=== PATIENT | female | born 1955 | race Caucasian/White ===

== ENCOUNTER 2017-01-08 18:22 | Emergency (ER) | payer MEDICARE, OTHER ==
[~2017-01-08] VITALS: Ht 175.3 cm; Wt 113.9 kg
[~2017-01-08 18:22] MED LIST: ASPIR 8181 MG PO; ASPIRIN 325MG325 MG PO; ATENOLOL25 M1 PO; ATENOLOL25 MG PO; ATENOLOL50 M1 PO; BETAPACE120 MG PO; CO Q-1050 MG PO; CO-Q10 300 MG-31 SGL PO; DEPAKOTE ER250 MG PO; DEPAKOTE ER500 MG PO; DILTIAZEM ER 1120 MG PO; DIVALPROEX 250250 MG PO; FLEXERIL10 MG PO; HYDROCHLOROTH12.5 M1 PO; LATANOPROST 2.2.5 ML OP; LEVOTHYROXINE0.05 M3 PO; LISINOPRIL 20MG20 MG PO; LOSARTAN POTAS100 MG PO; LOSARTAN POTASS50 MG PO; MECLIZINE HYDRO25 MG PO; TRAMADOL 50MG T1 PAK PO; TRAMADOL 50MG T50 M1 PO; XARELTO20 MG PO; Zofran4 MG PO
[2017-01-08] MEDS ORDERED: POTASSIUM CHLO10 ME3 PO (18:31)
[2017-01-08] MEDS ORDERED: COQ1050 MG PO (18:32)
[2017-01-08] MEDS ORDERED: HYDROCHLOROTH12.5 M1 PO (18:32)
[2017-01-08 18:55] LABS: LYMPH # 4.6 K/mm3 (0.7-4.5); LYMPH % 37.5 % (10-50.0)
--- OUTSIDE RECORDS SUMMARY | 2017-01-08 18:57 | External Medical Summary Rpt ---
Author Author AME Address Unknown Phone [email or web address] Purpose Continuity of Care Document - through 2016
--- OUTSIDE RECORDS SUMMARY | 2017-01-08 18:57 | External Medical Summary Rpt ---
Author Author AME Address Unknown Phone [email or web address] Purpose Continuity of Care Document - through 2016
--- OUTSIDE RECORDS SUMMARY | 2017-01-08 18:57 | External Medical Summary Rpt ---
Author Author [employer] Organization [employer] Address Unknown Phone Unavailable Purpose Continuity of Care Document - through 2016
--- OUTSIDE RECORDS SUMMARY | 2017-01-08 18:57 | External Medical Summary Rpt ---
Demographics Preferred Language Greenlandic Marital Status Unknown Christian Affiliation Unknown Race Unknown Ethnic Group Unknown Author Author AME Address Unknown Phone Immunization No patient found.
--- OUTSIDE RECORDS SUMMARY | 2017-01-08 18:57 | External Medical Summary Rpt ---
Demographics Preferred Language Ukrainian Marital Status Unknown Amish Affiliation Unknown Race Unknown Ethnic Group Unknown Author Author AME Address Unknown Phone Immunization No patient found.
[2017-01-08 19:23] LABS: BUN 21 mg/dL (7-18); GFR (ESTIMATED) 56 ML/MIN (59-)
--- NOTE | 2017-01-08 19:29 | Emergency Room Report ---
History of Present Illness Time Seen by 185 Presenting Problem in Triage Pt arrived:Walked Presenting Problem:PT REPORTS CHEST HEAVINESS AND PAIN IN BETWEEN SHOULDER BLADES THAT HAS BEEN INTERMITTENT SINCE LASTNIGHT. 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 N Clinical Suspician of Infection? N Mental Status: 1 - Regular (Normal Baseline) Sepsis Risk:Possible Sepsis Risk Have you (or family members/close friends) recently traveled outside the [place]? N If Yes, where/when: Have you had exposure to infectious disease within the past month? N TB? Other? Specify: Source patient, RN notes reviewed, old records Exam Limitations no limitations Cardiac Chest Pain Chest pain indicative of cardiac No Timing/Duration this evening Severity moderate ALLERGIES Coded Allergies: codeine (Mild, 05/24/16) epinephrine (Mild, HEART RACING 01/08/17) iodine (Mild, 05/24/16) lidocaine (Mild, 05/24/16) spironolactone (01/08/17) Home Medications Active Scripts LEVOTHYROXINE SOD (Levothyroxine 0.05MG) 0.05 MG PO DAILY #30 TAB Ref 6 Prov: 08/26/13 Reported Medications Aspirin (Aspirin EC 81MG Tab) 81 MG PO DAILY Losartan Potassium (Losartan 50MG) 25 MG PO DAILY 30 Days Atenolol 25 MG PO #135 POTASSIUM CHL (Potassium Chloride) 5 MEQ PO DAILY Hydrochlorothiazide (Hydrochlorothiazide 12.5MG) 12.5 MG PO DAILY Ubidecarenone (Coq10) 50 MG PO DAILY (CATIE GUTIERREZ, [facility]) History Medical History General CAD? No Angina: No CO: No Hypertension? Yes Hyperlipidemia? Yes CHF? No DVT? No PE? No COPD? No Asthma? Yes Anemia? No GERD? No Gastric ulcers? No GI Bleed? No Hernia? No Thyroid Problems? Yes Hypothyroidism? Yes CVA? No Seizures? No Diabetes? No Renal Insuffiency? No End Stage Renal Disease? No UTI? Yes Stones? No BPH? No GB Disease: No Nephritic Syndrome? No Asplenia? No Hepatitis? No Sickle Cell Disease? No Arthritis? No Migraines? No Cataracts? No Glaucoma? Yes MRSA? No HIV? No TB? No Anxiety? No Depression? Yes Cancer? No Site: CERVICAL DYSPLAGIA More? Yes Additional hx: OSTEOPOROSIS, FIBROMYALGIA, BIPOLAR,AFIB Immunization Hx DT/Tetanus > 10 Years Ago Flu Refused Pneumonia Never Had Surgical Hx Previous Surgery?Y EDLA Tubal Ligation Tonsils BIOPSY OF TUMOR LT.BREAST CRYO ON CERVIX D & C CARDIAC CATH LIVER BIOPSY Family History Family Hx Family Hx Insignificant No Diabetes Yes CAD Yes Hypertension Yes Hyperlipidemia Yes Cancer Yes TB No Social History Smoking Hx Smoker: Never Smoker Tobacco: No Alcohol Alcohol: No Drugs denies Additionial History Additional History Pt has a cardilogist in [facility]. She has paroxysmal A-fib. Admitted here in Mar 2016 for a -fib and was placed on Xarelto and sotolal and then follow up with milling machine tender discontinued both.Today in normal sinus rythym (GRAYSON HADDAD MD) Review of Systems All Other Systems Reviewed and Negative Constitutional no symptoms reported Eyes no symptoms reported ENT no symptoms reported. Respiratory no symptoms reported Cardiovascular denies no symptoms reported, chest pain, edema, palpitations Genitourinary no symptoms reported. Musculoskeletal no symptoms reported Skin no symptoms reported Psychiatric/Neurological no symptoms reported (CATIE GUTIERREZ, GRAYSON) Physical Exam Vital Signs Vital Signs Date Time Temp Pulse Resp B/P Pulse O2 O2 Flow FiO2 Ox Delivery Rate 01/08 2042 63 20 140/74 97 01/08 2009 63 20 116/62 97 01/08 1940 70 20 121/77 97 01/08 1910 98 20 143/79 97 01/08 1823 98.1 98 20 180/111 97 General Appearance normal appearance, WD/WN Eye Exam - bilateral eye normal exam, bilateral eye PERRL Respiratory Status No: respiratory distress. Lung Sounds bilateral: normal breath sounds, lungs clear. Cardiovascular normal exam, regular rate/rhythm, no gallop, no JVD, no murmur Peripheral Pulses Pulses normal Yes Extremities pedal edema (plus 1) Nurse present during exam? No Neurologic alert, automotive design layout drafter II-XII nml as tested Mental status normal mood/affect Skin normal color, warm/dry (GRAYSON HADDAD MD) Medical Decision Making LABS/Meds/Orders Pt receiving controlled substance in ED? No Results/Orders Laboratory Tests 01/08/17 2015: Creatine Kinase 253 H, CK-MB (CK-2) Rel Index 1.3, CK and CKMB Interp 3.4, Troponin I < 0.02 01/08/173: Sodium 138, Potassium 3.3 L, Chloride 101, Carbon Dioxide 26, BUN 21 H, Creatinine 1.0, Estimated Creat Clear 103, Estimated GFR (MDRD) 56 L, Glucose 114 H, Calcium 9.5, Total Bilirubin 0.4, AST 30, ALT 35, Alkaline Phosphatase 111, Creatine Kinase 272 H, CK-MB (CK-2) Rel Index 1.5, CK and CKMB Interp 4.1 H, Troponin I < 0.02, Total Protein 7.8, Albumin 4.0, Globulin 3.8 H, Albumin/ Globulin Ratio 1.1, WBC 12.2 H, RBC 5.00, Hgb 14.0, Hct 41.5, MCV 83.1, RDW 13.1, Plt Count 302, MPV 6.8 L, Gran % 54.0, Gran # 6.6, Lymphocytes % 37.5, Monocytes % 6.3, Eosinophils % 1.7, Basophils % 0.5, Lymphocytes # 4.6 H, Monocytes # 0.8, Eosinophils # 0.2, Basophils # 0.1, PUBS MCHC 33.7, MCH 28.0 Current Medication Orders Sig/Francois Start time Last Medication Dose Route Stop Time Status Admin Aspirin 243 MG ONCE ONE 01/08 1830 DC 01/08 PO 01/08 183 183 Sodium Chloride 10 ML PRN PRN 01/08 183 AC IV 01/09 182 Orders Procedure Date/time Status CARDIAC ENZYMES 01/09 2008 Complete ELECTROCARDIOGRAM REQUEST 01/08 1826 Active IV SALINE LOCK 01/08 1826 Active FIELD ORGANIZER 01/08 1826 Active CBC WITH AUTO DIFF 01/08 1826 Complete CARDIAC ENZYMES 01/08 1826 Complete CHEM 12 PROFILE 01/08 1826 Complete 12 LEAD EKG-GUY (INITIAL) 01/08 UNK Active CM/EKG CM/lpn instructor Rhythm Normal Sinus Rhythm, 1st Degree Heart Block, RBBB (GRAYSON HADDAD MD) Departure Departure Time of Disposition 2009 Clinical Impression Primary Impression: Chest pain Qualifiers: Chest pain type: precordial pain Qualified Code: R07.2 - Precordial pain Condition STABLE Referrals Austin Ventura MD (Family) ED Critical Care Critical Care No (GRAYSON HADDAD MD) Departure Disposition DC Home or Self Care(routine) Patient Instructions DI for Chest Pain Additional Instructions call pcp for follow up in am Discharge Counseling Counseled pt/family regarding diagnosis, test results, follow up needs (Italo Bautista MD) at 2010 at 2050
--- NOTE | 2017-01-08 19:29 | Emergency Room Report ---
History of Present Illness Time Seen by 185 Presenting Problem in Triage Pt arrived:Walked Presenting Problem:PT REPORTS CHEST HEAVINESS AND PAIN IN BETWEEN SHOULDER BLADES THAT HAS BEEN INTERMITTENT SINCE LASTNIGHT. 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 N Clinical Suspician of Infection? N Mental Status: 1 - Regular (Normal Baseline) Sepsis Risk:Possible Sepsis Risk Have you (or family members/close friends) recently traveled outside the [place]? N If Yes, where/when: Have you had exposure to infectious disease within the past month? N TB? Other? Specify: Source patient, RN notes reviewed, old records Exam Limitations no limitations Cardiac Chest Pain Chest pain indicative of cardiac No Timing/Duration this evening Severity moderate ALLERGIES Coded Allergies: codeine (Mild, 05/24/16) epinephrine (Mild, HEART RACING 01/08/17) iodine (Mild, 05/24/16) lidocaine (Mild, 05/24/16) spironolactone (01/08/17) Home Medications Active Scripts LEVOTHYROXINE SOD (Levothyroxine 0.05MG) 0.05 MG PO DAILY #30 TAB Ref 6 Prov: 08/26/13 Reported Medications Aspirin (Aspirin EC 81MG Tab) 81 MG PO DAILY Losartan Potassium (Losartan 50MG) 25 MG PO DAILY 30 Days Atenolol 25 MG PO #135 POTASSIUM CHL (Potassium Chloride) 5 MEQ PO DAILY Hydrochlorothiazide (Hydrochlorothiazide 12.5MG) 12.5 MG PO DAILY Ubidecarenone (Coq10) 50 MG PO DAILY (CATIE GUTIERREZ, [facility]) History Medical History General CAD? No Angina: No DE: No Hypertension? Yes Hyperlipidemia? Yes CHF? No DVT? No PE? No COPD? No Asthma? Yes Anemia? No GERD? No Gastric ulcers? No GI Bleed? No Hernia? No Thyroid Problems? Yes Hypothyroidism? Yes CVA? No Seizures? No Diabetes? No Renal Insuffiency? No End Stage Renal Disease? No UTI? Yes Stones? No BPH? No GB Disease: No Nephritic Syndrome? No Asplenia? No Hepatitis? No Sickle Cell Disease? No Arthritis? No Migraines? No Cataracts? No Glaucoma? Yes MRSA? No HIV? No TB? No Anxiety? No Depression? Yes Cancer? No Site: CERVICAL DYSPLAGIA More? Yes Additional hx: OSTEOPOROSIS, FIBROMYALGIA, BIPOLAR,AFIB Immunization Hx DT/Tetanus > 10 Years Ago Flu Refused Pneumonia Never Had Surgical Hx Previous Surgery?Y ELDA Tubal Ligation Tonsils BIOPSY OF TUMOR LT.BREAST CRYO ON CERVIX D & C CARDIAC CATH LIVER BIOPSY Family History Family Hx Family Hx Insignificant No Diabetes Yes CAD Yes Hypertension Yes Hyperlipidemia Yes Cancer Yes TB No Social History Smoking Hx Smoker: Never Smoker Tobacco: No Alcohol Alcohol: No Drugs denies Additionial History Additional History Pt has a cardilogist in [facility]. She has paroxysmal A-fib. Admitted here in Mar 2016 for a -fib and was placed on Xarelto and sotolal and then follow up with lock master discontinued both.Today in normal sinus rythym (GRAYSON HADDAD MD) Review of Systems All Other Systems Reviewed and Negative Constitutional no symptoms reported Eyes no symptoms reported ENT no symptoms reported. Respiratory no symptoms reported Cardiovascular denies no symptoms reported, chest pain, edema, palpitations Genitourinary no symptoms reported. Musculoskeletal no symptoms reported Skin no symptoms reported Psychiatric/Neurological no symptoms reported (CATIE GUTIERREZ, GRAYSON) Physical Exam Vital Signs Vital Signs Date Time Temp Pulse Resp B/P Pulse O2 O2 Flow FiO2 Ox Delivery Rate 01/08 2042 63 20 140/74 97 01/08 2009 63 20 116/62 97 01/08 1940 70 20 121/77 97 01/08 1910 98 20 143/79 97 01/08 1823 98.1 98 20 180/111 97 General Appearance normal appearance, WD/WN Eye Exam - bilateral eye normal exam, bilateral eye PERRL Respiratory Status No: respiratory distress. Lung Sounds bilateral: normal breath sounds, lungs clear. Cardiovascular normal exam, regular rate/rhythm, no gallop, no JVD, no murmur Peripheral Pulses Pulses normal Yes Extremities pedal edema (plus 1) Nurse present during exam? No Neurologic alert, tailor's aide II-XII nml as tested Mental status normal mood/affect Skin normal color, warm/dry (GRAYSON HADDAD MD) Medical Decision Making LABS/Meds/Orders Pt receiving controlled substance in ED? No Results/Orders Laboratory Tests 01/08/17 2015: Creatine Kinase 253 H, CK-MB (CK-2) Rel Index 1.3, CK and CKMB Interp 3.4, Troponin I < 0.02 01/08/173: Sodium 138, Potassium 3.3 L, Chloride 101, Carbon Dioxide 26, BUN 21 H, Creatinine 1.0, Estimated Creat Clear 103, Estimated GFR (MDRD) 56 L, Glucose 114 H, Calcium 9.5, Total Bilirubin 0.4, AST 30, ALT 35, Alkaline Phosphatase 111, Creatine Kinase 272 H, CK-MB (CK-2) Rel Index 1.5, CK and CKMB Interp 4.1 H, Troponin I < 0.02, Total Protein 7.8, Albumin 4.0, Globulin 3.8 H, Albumin/ Globulin Ratio 1.1, WBC 12.2 H, RBC 5.00, Hgb 14.0, Hct 41.5, MCV 83.1, RDW 13.1, Plt Count 302, MPV 6.8 L, Gran % 54.0, Gran # 6.6, Lymphocytes % 37.5, Monocytes % 6.3, Eosinophils % 1.7, Basophils % 0.5, Lymphocytes # 4.6 H, Monocytes # 0.8, Eosinophils # 0.2, Basophils # 0.1, PUBS MCHC 33.7, MCH 28.0 Current Medication Orders Sig/Francois Start time Last Medication Dose Route Stop Time Status Admin Aspirin 243 MG ONCE ONE 01/08 1830 DC 01/08 PO 01/08 183 183 Sodium Chloride 10 ML PRN PRN 01/08 183 AC IV 01/09 182 Orders Procedure Date/time Status CARDIAC ENZYMES 01/09 2008 Complete ELECTROCARDIOGRAM REQUEST 01/08 1826 Active IV SALINE LOCK 01/08 1826 Active SOCIAL SERVICES 01/08 1826 Active CBC WITH AUTO DIFF 01/08 1826 Complete CARDIAC ENZYMES 01/08 1826 Complete CHEM 12 PROFILE 01/08 1826 Complete 12 LEAD EKG-GUY (INITIAL) 01/08 UNK Active CM/EKG CM/electromechanical technologist Rhythm Normal Sinus Rhythm, 1st Degree Heart Block, RBBB (GRAYSON HADDAD MD) Departure Departure Time of Disposition 2009 Clinical Impression Primary Impression: Chest pain Qualifiers: Chest pain type: precordial pain Qualified Code: R07.2 - Precordial pain Condition STABLE Referrals Austin Ventura MD (Family) ED Critical Care Critical Care No (GRAYSON HADDAD MD) Departure Disposition DC Home or Self Care(routine) Patient Instructions DI for Chest Pain Additional Instructions call pcp for follow up in am Discharge Counseling Counseled pt/family regarding diagnosis, test results, follow up needs (Italo Bautista MD) at 2010 at 2050
--- NOTE | 2017-01-08 19:57 | RADIOLOGY REPORT PS360 ---
CHEST(2 VIEWS-NOT PORTABLE) HISTORY: Chest pain CP ORDERING PHYSICIAN: PATIENT AGE: 61 years COMPARISON: 08/07/2015 FINDINGS: There is mild cardiomegaly without failure. Lungs are clear bilaterally. No lobar consolidation or collapse. There is a mild pectus deformity with some obliteration of the right heart border similar to previous exams. There is minimal biapical pleural thickening which is chronic. Mild adjacent change thoracic spine. IMPRESSION: Mild cardiomegaly with mild pectus deformity otherwise negative. No acute finding
[2017-01-08 21:01] VITALS: BP 140/74
== END 2017-01-08 21:01 | disposition home or self-care (01) ==
LOC: ER 18:22
PROVIDERS: Internal Medicine
DX: R07.2 Precordial pain (principal); I48.0 Paroxysmal atrial fibrillation; Z79.01 Long term (current) use of anticoagulants; I10 Essential (primary) hypertension